=== PATIENT | male | born 1950 | race African-American/Black ===

== ENCOUNTER 2017-06-13 09:28 | Inpatient (IN) | payer BC, OTHER ==
[~2017-06-13] VITALS: Ht 188 cm; Wt 93.7 kg
[~2017-06-13 09:28] MED LIST: GLUCOPHAGE1000 MG PO
[2017-07-04] VITALS (10 sets, daily range): BP systolic 148–192; BP diastolic 79–114
[2017-07-04 17:47] LABS: CHLORIDE 101 MEQ/L (99-109); GFR ESTIMATE (CALCULATED) > 59 mL/min/ (58.99-99999); GLUCOSE 190 mg/dL (70-99); POTASSIUM 3.7 MEQ/L (3.7-5.4); SODIUM 134 MEQ/L (136-147); UREA NITROGEN (BUN) 18 mg/dL (9-23)
[2017-07-05] VITALS (15 sets, daily range): BP systolic 119–169; BP diastolic 74–92
[2017-07-05 06:00] LABS: HEMATOCRIT 38.3 % (38.0-50.0); HEMOGLOBIN 12.6 G/DL (12.5-16.6); MCH 26.7 PG (29.0-34.0); MCHC 32.9 G/DL (30.0-36.0); MCV 81.1 FL (86-99); PLATELET COUNT 231 K/uL (156-360); RBC DIS.WIDTH-CV 13.2 % (11.8-14.6); RBC DIS.WIDTH-SD 39.3 % (39-53); RED BLOOD COUNT 4.72 M/uL (4.00-5.50); WHITE BLOOD COUNT 13.1 K/uL (4.1-10.2)
[2017-07-05 07:10] LABS: CHLORIDE 100 MEQ/L (99-109); SODIUM 135 MEQ/L (136-147)
[2017-07-05 07:16] LABS: CREATININE 0.9 MG/DL (0.6-1.3); GFR ESTIMATE (CALCULATED) > 59 mL/min/ (58.99-99999); GLUCOSE 189 mg/dL (70-99); UREA NITROGEN (BUN) 13 mg/dL (9-23)
[2017-07-05 20:28] LABS: APPEARANCE CLEAR ((CLEAR)); BILIRUBIN NEGATIVE; BLOOD NEGATIVE; COLOR YELLOW ((YELLOW)); GLUCOSE (STRIP) 150; KETONES 20; LEUKOCYTES NEGATIVE; NITRITE NEGATIVE; PROTEIN (STRIP) 100; SPECIFIC GRAVITY 1.014 (1.000-1.030); UROBILINOGEN 0.2 MG/DL (0.2-1.0)
[2017-07-05 20:37] LABS: BACTERIA NONE SEEN /HPF; EPITHELIAL CELLS RARE /HPF; MUCUS TRACE /LPF; RED BLOOD CELLS 0-5 /HPF (0-5); UCUL ADDED? NO; WHITE BLOOD CELLS 0-5 /HPF (0-5)
[2017-07-06 00:17] VITALS: BP 151/82
[2017-07-06 04:13] VITALS: BP 138/80
[2017-07-06 08:20] VITALS: BP 141/87
[2017-07-06 11:44] VITALS: BP 161/97
[2017-07-06 16:10] VITALS: BP 172/93
== END 2017-07-06 18:58 | disposition home or self-care (01) | DRG 615 ==
LOC: 2SOUTH 09:28 → ENRESERV 07-03 22:07 → 4WEST 07-04 07:26 → 2SOUTH 07-04 07:26 → ENRESERV 07-04 07:27 → 2SOUTH 07-04 08:48 → ENRESERV 07-04 17:41 → 4WEST 07-04 20:45 → ENRESERV 07-05 19:45 → 3EAST 07-05 20:27
PROVIDERS: Neurological Surgery; Nurse Practitioner Adult Health; Surgery
PROC: 09QX4ZZ Repair Left Sphenoid Sinus, Percutaneous Endoscopic Approach (ICD-10-PCS; principal; 2017-07-04)
PROC: 0GT Endocrine System, Resection (ICD-10-PCS; principal; 2017-07-04)
PROC: 8E09XBZ Computer Assisted Procedure of Head and Neck Region (ICD-10-PCS; principal; 2017-07-04)
PROC: 09CX8ZZ Extirpation of Matter from Left Sphenoid Sinus, Via Natural or Artificial Opening Endoscopic (ICD-10-PCS; principal; 2017-07-04)
PROC: 0JB80ZZ Excision of Abdomen Subcutaneous Tissue and Fascia, Open Approach (ICD-10-PCS; principal; 2017-07-04)
DX: D35.2 Benign neoplasm of pituitary gland (principal); H53.47 Heteronymous bilateral field defects; H54.3 Unqualified visual loss, both eyes; E11.9 Type 2 diabetes mellitus without complications; R33.8 Other retention of urine; H54.7 Unspecified visual loss; Z82.49 Family history of ischemic heart disease and other diseases of the circulatory system; Z79.84 Long term (current) use of oral hypoglycemic drugs; Z68.28 Body mass index [BMI] 28.0-28.9, adult
CPT/HCPCS: 70450; 77021; 80048; 81003; 82948; 83935; 84295; 85027; 86850; 86900; 86901; 87641; 88305; 88331; J0171; J0690; J1030; J1170; J1720; J1815; J2250; J2270; J2405; J2710; J3010; J3480; S0020

== ENCOUNTER 2017-07-24 16:23 | Observation (INO) | payer BC, OTHER ==
[~2017-07-24] VITALS: Ht 182.9 cm; Wt 95.1 kg
[2017-07-24 17:04] LABS: BASOPHIL (%) 0.8 % (0-1); BASOPHIL COUNT 0.1 K/uL (0-0.1); EOSINOPHIL (%) 1.5 % (0-5); EOSINOPHIL COUNT 0.1 K/uL (0-0.3); HEMATOCRIT 38.5 % (38.0-50.0); HEMOGLOBIN 12.8 G/DL (12.5-16.6); IMMATURE GRANULOCYTE (%) 0.5 % (0.0-0.7); LYMPHOCYTE (%) 33.1 % (15-42); LYMPHOCYTE COUNT 2.6 K/uL (1.0-2.8); MCH 27.2 PG (29.0-34.0); MCHC 33.2 G/DL (30.0-36.0); MCV 81.9 FL (86-99); MONOCYTE (%) 6.5 % (3-12); MONOCYTE COUNT 0.5 K/uL (0-0.8); NEUTROPHIL (%) 57.6 % (45-76); NEUTROPHIL COUNT 4.5 K/uL (1.8-6.4); PLATELET COUNT 215 K/uL (156-360); RBC DIS.WIDTH-CV 14.2 % (11.8-14.6); RBC DIS.WIDTH-SD 41.3 % (39-53); WHITE BLOOD COUNT 7.9 K/uL (4.1-10.2)
[2017-07-24 17:34] LABS: ALBUMIN 4.2 g/dL (3.2-4.8); CHLORIDE 101 mEq/L (99-109); POTASSIUM 4.2 mEq/L (3.7-5.4); SODIUM 137 mEq/L (136-147)
[2017-07-24 17:36] LABS: GLUCOSE 226 mg/dL (70-99); TOTAL PROTEIN 7.3 g/dL (6.4-8.3)
[2017-07-24 17:38] LABS: TOTAL BILIRUBIN 0.6 mg/dL (0.0-1.0)
[2017-07-24 17:40] LABS: ALKALINE PHOSPHATASE 64 IU/L (3-129); GFR ESTIMATE (CALCULATED) > 59 mL/min/ (58.99-99999)
[2017-07-24 17:41] LABS: AST (GOT) 12 IU/L (2-34); UREA NITROGEN (BUN) 29 mg/dL (9-23)
[2017-07-24 17:43] LABS: ALT (GPT) 16 IU/L (3-49); CREATINE KINASE 127 IU/L (1-294); TOTAL CK 127 IU/L (1-294)
[2017-07-24 17:46] LABS: TROP-I INTERPRETATION NEGATIVE; TROPONIN-I < 0.01 ng/mL (0.0-0.30)
[2017-07-24 17:48] LABS: CK-MB 1.8 ng/mL (0.0-4.9); CKMB RELATIVE INDEX 1.4 (0.0-3.9)
[2017-07-24] MEDS ORDERED: PREDNISONE5 MG PO (20:05)
[2017-07-24] MEDS ORDERED: TAMSULOSIN HCL0.4 MG PO (20:05)
[2017-07-24 21:53] VITALS: BP 137/82
[2017-07-25 00:32] VITALS: BP 153/84
[2017-07-25 01:09] LABS: TROP-I INTERPRETATION NEGATIVE; TROPONIN-I < 0.01 ng/mL (0.0-0.30)
[2017-07-25 04:05] VITALS: BP 150/94
[2017-07-25 05:48] LABS: ALKALINE PHOSPHATASE 53 IU/L (3-129); ALT (GPT) 13 IU/L (3-49); AST (GOT) 14 IU/L (2-34); CHLORIDE 105 MEQ/L (99-109); CREATININE 0.8 MG/DL (0.6-1.3); GFR ESTIMATE (CALCULATED) > 59 mL/min/ (58.99-99999); POTASSIUM 4.7 MEQ/L (3.7-5.4); SODIUM 136 MEQ/L (136-147); TOTAL BILIRUBIN 0.6 MG/DL (0.0-1.0); TOTAL PROTEIN 6.8 G/DL (6.4-8.3); TROP-I INTERPRETATION NEGATIVE; TROPONIN-I < 0.01 ng/mL (0.0-0.30); UREA NITROGEN (BUN) 23 mg/dL (9-23)
[2017-07-25 05:49] LABS: GLUCOSE 112 mg/dL (70-99)
[2017-07-25 08:58] VITALS: BP 157/93
[2017-07-25 11:47] VITALS: BP 134/76
[2017-07-25 15:46] VITALS: BP 124/80
[2017-07-25 20:00] VITALS: BP 146/70
[2017-07-26 00:36] VITALS: BP 133/64
[2017-07-26 07:50] VITALS: BP 139/85
[2017-07-26 11:22] VITALS: BP 141/87
== END 2017-07-26 11:54 | disposition home or self-care (01) ==
LOC: EME 16:23 → 5WEST 20:20 → EDOF 20:20 → ENRESERV 20:21 → 5WEST 21:24 → ENPENDDIS 07-26 → 5WEST 07-26 11:54
PROVIDERS: Emergency Medicine; Hospitalist
DX: R55 Syncope and collapse (principal); Z98.890 Other specified postprocedural states; E11.9 Type 2 diabetes mellitus without complications; Z79.84 Long term (current) use of oral hypoglycemic drugs; D35.2 Benign neoplasm of pituitary gland; Z83.3 Family history of diabetes mellitus; Z82.49 Family history of ischemic heart disease and other diseases of the circulatory system
CPT/HCPCS: 70450; 70551; 71046; 80053; 82550; 82553; 82948; 84484; 85025; 93005; 95819; G0378; J1650; J1815; J7030; J7512